=== PATIENT | male | born 2000 | race Caucasian/White ===

== ENCOUNTER 2018-07-20 15:34 | Emergency (ER) | payer SELFPAY ==
[~2018-07-20] VITALS: Ht 188 cm; Wt 70.0 kg
[2018-07-20 15:39] VITALS: BP 127/77
[2018-07-20] MEDS ORDERED: HYDROcodone/APAP 5/325 TABLET ONE (16:20)
== END 2018-07-20 16:43 | disposition home or self-care (01) ==
LOC: ED 16:35
DX: S20.211A Contusion of right front wall of thorax, initial encounter (principal); W01.0XXA Fall on same level from slipping, tripping and stumbling without subsequent striking against object, initial encounter; Y93.51 Activity, roller skating (inline) and skateboarding; Y92.410 Unspecified street and highway as the place of occurrence of the external cause; Y99.8 Other external cause status
CPT/HCPCS: 99283